=== PATIENT | female | born 1965 | race Caucasian/White ===

== ENCOUNTER 2018-09-18 16:07 | Inpatient (IN) | payer MEDICAID ==
[2018-09-19] MEDS ORDERED: BISACODYL 10 MG SUPP PR PRN (15:39)
--- NOTE | 2018-09-19 16:48 | PDOREHIP ---
Admission [facility] - Admission - 3 Day Assessment Period Admission Date/Day 1: 09/19/18 Day 2: 09/20/18 Day 3: 09/21/18 - Active Diagnoses Comorbidities and Co-existing Conditions at Admission: 79532. None of the Above - Skin Conditions Unhealed Pressure Ulcer (1 or more/Stage 1 or >)-Admission: 0. No # Stage 1 Pressure Ulcers-Admission: 0 # Stage 2 Pressure Ulcers-Admission: 0 # Stage 3 Pressure Ulcers-Admission: 0 # Stage 4 Pressure Ulcers-Admission: 0 # Unstageable Pressure Ulcers (Non-remove Dress)-Admission: 0 # Unstageable Pressure Ulcers (Slough/Eschar)-Admission: 0 # Unstageable Pressure Ulcers (Deep Tissue Injury)-Admission: 0
[2018-09-19] MEDS: ACETAMINOPHEN 500 MG TAB PO SCH ×2 (17:09→23:45)
[2018-09-19] MEDS: GABAPENTIN 300 MG CAP PO SCH ×2 (17:09→20:54)
[2018-09-19] MEDS: ENOXAPARIN 40 MG/0.4 ML SYR SC SCH (17:09)
[2018-09-19] MEDS: CYCLOBENZAPRINE 10 MG TAB PO PRN ×2 (18:26→23:45)
--- NOTE | 2018-09-19 18:42 | GHP ---
[f rep st] HISTORY AND PHYSICAL POST ADMISSION PHYSICIAN EVALUATION AND REHABILITATION TREATMENT PLAN. DATE OF ADMISSION: 09/19/2018 DATE OF EVALUATION: September 19, 2018. TIME OF EVALUATION: 1535. REFERRING FACILITY: [facility]. REFERRING PHYSICIAN: Dr. Escalante IMPAIRMENT GROUP: 8.9. DATE OF ONSET: 09/09/2018 CONSULTING PHYSICIANS: I do not have a full list, but she was also managed by the Pulmonary Critical Care Service. REHABILITATION DIAGNOSIS: Debility status post lumbar surgery. ETIOLOGIC DIAGNOSIS: Other orthopedic. DATE OF SURGERY: 09/09/2018. HISTORY OF PRESENT ILLNESS: This patient has had long-standing back pain and degenerative scoliosis. She had right leg weakness which had caused some falls. After failure of conservative treatment and considerable evaluation, she was finally admitted to [facility] for elective two-stage lumbar fusion surgery. She underwent an L2 to S1 oblique lateral interbody fusion on 09/09/2018, and an L2 to S2 posterior spinal fusion on 09/16/2018. Her hospital course was complicated by hypotension requiring pressors, supraventricular tachycardia, pain, anemia requiring blood transfusion, hematuria, and edema attributed to anasarca which was treated with furosemide. She continues to have weakness, more so in the right lower extremity than the left, but she was otherwise medically stabilized and ready for inpatient rehabilitation. STUDIES AND LABS IN THE HOSPITAL: Most recent basic metabolic profile was 09/17. She had a low calcium at7.8 and an elevated glucose at 174, but this was in the afternoon. Otherwise, renal function and electrolytes were overall within normal limits. CBC on 09/17/2018, showed anemia with a hemoglobin of 8.5 and hematocrit of 24.9. This was essentially unchanged from CBC done on , and the day, before she had considerably worse anemia with a hemoglobin of 6.4; presumably, she received a transfusion. Liver function tests on 09/16/2018, showed a low albumin at 2, AST was slightly elevated at 44. Otherwise, liver functions were normal. She had a fasting cortisol done on 09/10, normal at 21.5. On 09/16/2018, a serum test was negative. On 09/16, her pro time was elevated at 13.3, and her INR was 0.3. TSH was done on 09/11/2018,normal. Urinalysis on showed trace blood, was positive for nitrites, and was concentrated with a specific gravity greater than 1.030. Microscopic showed bacteria, 21-30 red blood cells, and 3 to 5 white blood cells. Echocardiogram showed a left ventricular ejection fraction of 65%. She had a relaxation abnormality with normal cardiac pressures. She had normal right ventricular size and function, and no valvular abnormalities. PRECAUTIONS: She is a fall risk, and she has orthopedic spine precautions. ACTIVE COMORBIDITIES: She has no active tier 1, tier 2, or tier 3 active comorbidities. PAST MEDICAL HISTORY: 1. Scoliosis. 2. Degenerative joint disease of the knees. 3. Neuromuscular disorder with abnormal MRI showing scattered subcortical lesions. Subsequent workup was negative for autoimmune vasculitis, neurosyphilis, or Lyme disease. 4. Chronic fatigue and pain. 5. De Quervain tenosynovitis on the right hand. 6. Depression. 7. Gastroesophageal reflux disease. 8. Migraines. 9. Helicobacter pylori gastritis. 10. Seasonal allergies. 11. Dyslipidemia. 12. Fibromyalgia. 13. Insomnia. 14. Pulmonary nodule which was stable on repeat CT in 2014. 15. Rheumatoid arthritis. PAST SURGICAL HISTORY: 1. She has had breast biopsy. 2. section x2. 3. Colonoscopy with biopsies. 4. Numerous paravertebral facet injections. PRE-HOSPITAL MEDICATIONS: 1. Amantadine 100 mg p.o. b.i.d. 2. Aspirin 81 mg p.o. daily. 3. Atorvastatin 40 mg p.o. q.h.s. 4. Calcium carbonate/vitamin-D 2 tablets p.o. daily. 5. Cetirizine 10 mg p.o. daily. 6. Coenzyme Q-10 100 mg p.o. daily. 7. Diclofenac gel. 8. Gabapentin 9. Hydroxychloroquine 200 mg p.o. b.i.d. 10. Ibuprofen 11. Magnesium malate 1,000 mg p.o. daily. 12. Metoprolol 50 mg b.i.d. 13. Mometasone 50 mcg actuation nasal spray 2 sprays into nostril daily. 14. Montelukast 10 mg p.o. daily. 15. Multivitamin p.o. daily. 16. Naratriptan 2.5 mg q.2 hours p.r.n. migraine, not to exceed 5 mg in 24 hours. 17. Olopatadine 0.7% 1 drop into each eye daily p.r.n. 18. Omeprazole 20 mg p.o. daily. 19. Topiramate 50 mg p.o. b.i.d. 20. Zolpidem 5 mg p.o. at bedtime. ADMISSION MEDICATIONS: 1. Acetaminophen 1,000 mg p.o. q.8 hours. 2. Amantadine 100 p.o. b.i.d. 3. Atorvastatin 40 mg p.o. at bedtime. 4. Bisacodyl 10 mg [place] daily p.r.n. 5. Cyclobenzaprine 10 mg p.o. q.6 hours p.r.n. 6. Enoxaparin 40 mg subcutaneous daily at 1600. 7. Fluticasone 2 sprays each nares daily. 8. Furosemide 20 mg p.o. Twice daily at 9:00 a.m. And 1500. 9. Gabapentin 900 mg p.o. t.i.d. 10. Hydroxychloroquine 200 200 mg p.o. twice daily. 11. Metoprolol 12.5 mg twice daily. 12. Montelukast 10 mg p.o. daily. 13. Multivitamin daily. 14. Oxycodone 5-15 mg p.o. q.4 hours p.r.n. 15. Pantoprazole 40 mg p.o. daily. 16. Polyethylene glycol 17 g p.o. daily. 17. Senna 1 p.o. b.i.d. 18. Topiramate 50 mg p.o. b.i.d. ALLERGIES: Listed to multiple antihistamines, codeine, hydromorphone, naproxen , penicillin, phenylpropanolamine, pseudoephedrine, and sulfa antibiotics. PSYCHOSOCIAL HISTORY: She is . She lives with her . She quit smoking about 9 years ago. She drinks occasional alcohol. She denies other substances of abuse. FAMILY HISTORY: Noncontributory. REVIEW OF SYSTEMS: She reports she gets occasional muscle spasms in her back and in her thighs, and she has pain, more bilateral in the lumbar area, and not central over her incision. She also has some tenderness in the left lower abdomen where she had the oblique procedure. Her right leg is still weaker than her left, and she says that at one time since her surgery, she was walking forward, but the right leg walked backwards. She has been sleeping well. She has a dry mouth. She has an occasional cough. There are no fevers or chills. There is no dyspnea. There is no chest pain or palpitations. Her bowels have moved, but she was constipated previously. She has a good appetite. There is no dysuria or urinary frequency. She had swelling of legs, and she thinks her weight has increased from her presurgical weight. Otherwise, a 10-point review of systems is negative. PHYSICAL EXAM: VITAL SIGNS: Blood pressure is 130/64, heart rate is 97, respiratory rate 18, temperature is 36.3 degrees centigrade. Her weight is 76.3 kg for a body mass of 26.8. GENERAL: This is an overweight-appearing woman sitting up in a chair, dressed in street clothes, cooperative, in no acute distress HEENT: Extraocular movements are intact. Pupils are equal, round, reactive to light. Mucous membranes are dry. She has a moderately crowded airway, Mallampati class 3. Dentition is in good condition. NECK: Supple. HEART: Regular rate and rhythm with no murmurs, rubs, or gallops. She has JVD and trace to 1+ edema at the left foot. LUNGS: Clear to auscultation bilaterally. ABDOMEN: Soft. It is distended. There is tenderness at the left lower quadrant over the incision. There are hypoactive bowel sounds. EXTREMITIES: There is no cyanosis or clubbing. There is edema at the left ankle, but not the right. There is no calf tenderness. NEUROLOGIC : She is alert and oriented x3. She is somewhat distractible and tangential. Cranial nerves 2-12 are grossly intact. Upper extremity motor strength is normal. Lower extremity motor strength is somewhat diminished on the right leg. Sensation overall is intact to light touch. Deep tendon reflexes are 2+ bilaterally at the patellar and Achilles tendons. SKIN: Incisions were examined. She has a drain in place in her upper lumbar region. The lumbar incision and abdominal left lower quadrant incision are glued. There is scant discharge from the drain site. CURRENT LEVEL OF FUNCTION: Per the pre-admission screen. She was on a regular diet, grooming required set up. Bathing required contact guard to minimal assist with voice cues for spinal precautions. For dressing, she required assistance for socks. Toileting was done with contact guard assist. Bed mobility required minimal assist and cues for log roll technique. Transfers required minimal assist. She used a front-wheeled walker. Balance required minimal assist. Endurance was fair. She was able to ambulate 30 feet x 3 with a front-wheeled walker and minimal assist. Communication and cognition were considered normal. On today's exam, there were no significant changes from the pre-admission screen. IMPRESSION: This is a 52-year-old woman who underwent a complex 2 stage lumbar surgery on 09/09/2018, with L2 to S1 oblique lumbar interbody fusion, and on , with L2 to S2 posterior spinal fusion for degenerative scoliosis. She had a complicated hospital course with hypotension requiring pressors, supraventricular tachycardia, anemia requiring transfusion, malnutrition, and anasarca, and she was treated with furosemide. She was eventually medically stabilized and appropriate for inpatient rehabilitation. Her goal is to complete a rehabilitation stay and then return home with her family and supportive services. For a safe discharge, she will need to be modified independent for activities of daily living and functional activities using a front-wheeled walker. She will need to maintain her spinal precautions throughout all activity. She will need to have affective pain managed and to be medically stable. She will have therapy with Physical Therapy and Occupational Therapy for 90 minutes per day for each discipline on 5-7 days a week. Her expected duration of stay is 5-7 days. It is anticipated that upon discharge she will continue to benefit from home health services including nursing, occupational therapy, physical therapy. PLAN: 1. Debility, status post lumbar to sacral fusion for degenerative scoliosis. PT and OT to optimize mobility and activities of daily living. 2. Symptom management. Pain currently is adequately controlled. Will continue oxycodone 5-15 mg q.4 hours p.r.n. unclear from her history whether she truly is suffering muscle spasms, but for now, we will continue cyclobenzaprine q.6 hours p.r.n., and it can be assessed whether this is true initial or simply contributing to dry mouth and confusion. Gabapentin has been increased from her 600 mg t.i.d. outpatient dose to 900 mg t.i.d. She will be monitored for continued neuropathic pain, and if possible, this medication can be tapered. 3. Constipation with distended abdomen, hypoactive bowel sounds. I have ordered a stat abdominal x-ray to determine her bowel status. We will continue laxatives as ordered for now with polyethylene glycol daily and senna 1 tab p.o. b.i.d. Additionally, bisacodyl suppository is ordered on an as-needed basis. Bowel program will be adjusted based on response. 4. Edema appears to be largely resolved, though she reports she is still up quite of bit of weight. Unclear how much the weight gain is related to the distended abdomen and constipation. Continue furosemide for now, but likely can be tapered. I have ordered a basic metabolic profile. 5. Anemia, status post transfusion. I have ordered a CBC. 6. History of MS-like neuromuscular disorder, presumably this is why she is on amantadine. This will be continued. 7. History of rheumatoid arthritis. She has no active synovitis present, and examination of her hands and feet does not reveal findings consistent with chronic joint destruction from rheumatoid arthritis. She reports she has not seen a fiberglass finisher in many years, but is managed by her primary care provider. We will continue hydroxychloroquine. 8. History of sinusitis and allergies. Continue cetirizine and montelukast. 9. History of gastroesophageal reflux disorder, continue pantoprazole. 10. History of migraines. Presumably, this is why topiramate is on board as a preventive. 11. History of hypertension with hypotension in the hospital. Continue metoprolol at 12.5 mg b.i.d. Blood pressure will be monitored and medication can be adjusted as needed. 12. Possible diastolic dysfunction based on echocardiogram that was done in the hospital. She will have daily weight and monitoring of her vitals. 13. Prophylaxis. She is certainly at moderate risk for DVT given her major surgery and prolonged hospital course. However, she has also ambulated as far as 300 feet. Will continue enoxaparin for now, but will have a low threshold to discontinue if her mobility improves. Will continue pantoprazole for gastroesophageal reflux disorder which will also serve as GI prophylaxis while she is on enoxaparin. FOLLOWUP: Her primary care provider is Dr. Jennifer Davis. She will follow up with Dr. Escalante of [facility] 2-3 weeks postoperatively, which is presumably in the week of September 29, and likely after her discharge from inpatient rehabilitation. /[id number]/MODL MTDD
[2018-09-19] MEDS ORDERED: METHYLNALTREXONE BROMIDE 12 MG/0.6 ML INJ SC ONE (19:00)
[2018-09-19] MEDS: oxyCODONE IR 5 MG TAB PO PRN ×2 (19:39→23:45)
[2018-09-19] MEDS: AMANTADINE HCL 100 MG CAP PO SCH (20:52)
[2018-09-19] MEDS: ATORVASTATIN CALCIUM 40 MG TAB PO SCH (20:54)
[2018-09-19] MEDS: SENNOSIDES 1 TAB PO SCH (20:54)
[2018-09-19] MEDS: METOPROLOL TARTRATE 25 MG TAB PO SCH (20:54)
[2018-09-19] MEDS: HYDROXYCHLOROQUINE SULFATE 200 MG TAB PO SCH (20:55)
[2018-09-19] MEDS: TOPIRAMATE 25 MG TAB PO SCH (20:56)
[2018-09-20] MEDS: CYCLOBENZAPRINE 10 MG TAB PO PRN ×3 (06:32→21:24)
[2018-09-20] MEDS: BIOTENE DRY MOUTH ORAL RINSE 237 ML BTL MM PRN (07:28)
[2018-09-20 09:27] LABS: PLATELET COUNT 342 10^3/uL (150-400)
[2018-09-20] MEDS: METOPROLOL TARTRATE 25 MG TAB PO SCH ×2 (10:28→21:24)
[2018-09-20] MEDS: GABAPENTIN 300 MG CAP PO SCH ×3 (10:28→21:23)
[2018-09-20] MEDS: MONTELUKAST SODIUM 10 MG TAB PO SCH (10:29)
[2018-09-20] MEDS: HYDROXYCHLOROQUINE SULFATE 200 MG TAB PO SCH ×2 (10:29→21:25)
[2018-09-20] MEDS: MULTIVITAMINS 1 EACH TAB PO SCH (10:29)
[2018-09-20] MEDS: FUROSEMIDE 20 MG TAB PO SCH ×2 (10:29→14:44)
[2018-09-20] MEDS: AMANTADINE HCL 100 MG CAP PO SCH ×2 (10:29→21:29)
[2018-09-20] MEDS: oxyCODONE IR 5 MG TAB PO PRN ×3 (10:30→21:23)
[2018-09-20] MEDS: TOPIRAMATE 25 MG TAB PO SCH ×2 (10:30→21:29)
[2018-09-20] MEDS: PANTOPRAZOLE SODIUM 40 MG TAB PO SCH (10:30)
[2018-09-20] MEDS: FLUTICASONE NASAL 120 SPRAYS/16 GM MDI EACHNARE SCH (10:39)
[2018-09-20] MEDS: ACETAMINOPHEN 500 MG TAB PO SCH ×2 (10:45→17:43)
[2018-09-20] MEDS: POLYETHYLENE GLYCOL 3350 17 GM PKT PO SCH (10:45)
--- NOTE | 2018-09-20 11:37 | HOSPPROG ---
Hospitalist Progress Note Assessment/Plan: * degenerative scoliosis s/p complex 2 part fusion L2-S2 - debility secondary from * cont PT/OT * Mild fluid overload * cont lasix for now. urinating a lot with the dose * Pain control * cont oxycodone/gabapentin * constipation * bowel protocol * anemia * expected * MS- like neuromuscular syndrome * on amatadine * GERD * PPI * migraines * topomax * HTN * metoprolol * ?Diastolic dysfx * cont to watch * DVT proph * lovenox Subjective: some pain after therapy but did not take pain med before. still feels swollen Objective: Vital Signs Temp Pulse Resp BP Pulse Ox 36.5 C 96 16 122/80 H 96 09/19/18 20:00 09/20/18 10:28 09/19/18 20:00 09/20/18 10:28 09/19/18 20:00 Laboratory Results 09/20/18 06:40 09/20/18 06:40 09/19/18 09/20/18 09/21/18 05:59 05:59 05:59 Intake Total 854 Output Total 100 Balance 754 - Physical Exam Constitutional: no apparent distress, appears nourished, not in pain Eyes: anicteric sclera, EOMI Ears, Nose, Mouth, Throat: moist mucous membranes Cardiovascular: regular rate and rhythym, no murmur, rub, or gallop, edema (1+) Respiratory: no respiratory distress, clear to auscultation Gastrointestinal: normoactive bowel sounds, soft, non-tender abdomen, no palpable masses, other (slight distension) Skin: warm Neurologic: AAOx3 Psychiatric: interacting appropriately, not anxious, not encephalopathic, thought process linear ICD10 Worksheet Patient Problems: Problems Problem Status Onset Debility Acute S/P lumbar fusion Acute
[2018-09-20] MEDS: SENNOSIDES 1 TAB PO SCH ×2 (13:34→21:24)
[2018-09-20] MEDS: ENOXAPARIN 40 MG/0.4 ML SYR SC SCH (14:43)
[2018-09-20] MEDS: ATORVASTATIN CALCIUM 40 MG TAB PO SCH (21:24)
[2018-09-21] MEDS: ACETAMINOPHEN 500 MG TAB PO SCH ×3 (05:22→15:24)
[2018-09-21] MEDS: oxyCODONE IR 5 MG TAB PO PRN ×3 (08:26→21:46)
[2018-09-21] MEDS: TOPIRAMATE 25 MG TAB PO SCH ×2 (08:28→21:46)
[2018-09-21] MEDS: PANTOPRAZOLE SODIUM 40 MG TAB PO SCH (08:28)
[2018-09-21] MEDS: GABAPENTIN 300 MG CAP PO SCH ×3 (08:28→21:45)
[2018-09-21] MEDS: POLYETHYLENE GLYCOL 3350 17 GM PKT PO SCH (08:29)
[2018-09-21] MEDS: FUROSEMIDE 20 MG TAB PO SCH ×2 (08:29→15:24)
[2018-09-21] MEDS: MONTELUKAST SODIUM 10 MG TAB PO SCH (08:29)
[2018-09-21] MEDS: SENNOSIDES 1 TAB PO SCH ×2 (08:29→21:45)
[2018-09-21] MEDS: METOPROLOL TARTRATE 25 MG TAB PO SCH ×2 (08:29→21:45)
[2018-09-21] MEDS: AMANTADINE HCL 100 MG CAP PO SCH ×2 (08:29→21:47)
[2018-09-21] MEDS: MULTIVITAMINS 1 EACH TAB PO SCH (08:29)
[2018-09-21] MEDS: HYDROXYCHLOROQUINE SULFATE 200 MG TAB PO SCH ×2 (08:29→21:46)
[2018-09-21] MEDS: BIOTENE DRY MOUTH ORAL RINSE 237 ML BTL MM PRN (08:30)
[2018-09-21] MEDS: FLUTICASONE NASAL 120 SPRAYS/16 GM MDI EACHNARE SCH (08:31)
--- NOTE | 2018-09-21 11:05 | HOSPPROG ---
Hospitalist Progress Note Assessment/Plan: * degenerative scoliosis s/p complex 2 part fusion L2-S2 - debility secondary from * cont PT/OT * Mild fluid overload * cont bid lasix for now. improving. may need another day or 2 * Pain control * cont oxycodone/gabapentin * constipation * bowel protocol * anemia * expected * MS- like neuromuscular syndrome * on amatadine * GERD * PPI * migraines * topomax * HTN * metoprolol * ?Diastolic dysfx * cont to watch * DVT proph * lovenox Subjective: pain better. swelling better Objective: Vital Signs Temp Pulse Resp BP Pulse Ox 36.7 C 80 16 131/67 H 97 09/21/18 06:56 09/21/18 06:56 09/21/18 06:56 09/21/18 06:56 09/21/18 06:56 Laboratory Results 09/20/18 06:40 09/20/18 06:40 09/20/18 09/21/18 09/22/18 05:59 05:59 05:59 Intake Total 854 840 Output Total 100 100 75 Balance 754 740 -75 - Physical Exam Constitutional: no apparent distress, appears nourished, not in pain Eyes: anicteric sclera, EOMI Ears, Nose, Mouth, Throat: moist mucous membranes Cardiovascular: regular rate and rhythym, edema (mild) Respiratory: no respiratory distress Skin: warm Neurologic: AAOx3 ICD10 Worksheet Patient Problems: Problems Problem Status Onset Debility Acute S/P lumbar fusion Acute
[2018-09-21] MEDS: ENOXAPARIN 40 MG/0.4 ML SYR SC SCH (15:24)
[2018-09-21] MEDS: ATORVASTATIN CALCIUM 40 MG TAB PO SCH (21:45)
[2018-09-21] MEDS: CYCLOBENZAPRINE 10 MG TAB PO PRN (21:46)
[2018-09-22] MEDS: ACETAMINOPHEN 500 MG TAB PO SCH ×3 (01:02→16:42)
[2018-09-22] MEDS: oxyCODONE IR 5 MG TAB PO PRN ×3 (07:49→22:48)
[2018-09-22] MEDS: FLUTICASONE NASAL 120 SPRAYS/16 GM MDI EACHNARE SCH (08:55)
[2018-09-22] MEDS: AMANTADINE HCL 100 MG CAP PO SCH ×2 (08:56→22:31)
[2018-09-22] MEDS: HYDROXYCHLOROQUINE SULFATE 200 MG TAB PO SCH ×2 (08:57→22:32)
[2018-09-22] MEDS: FUROSEMIDE 20 MG TAB PO SCH ×2 (08:57→16:43)
[2018-09-22] MEDS: METOPROLOL TARTRATE 25 MG TAB PO SCH ×2 (09:00→22:31)
[2018-09-22] MEDS: GABAPENTIN 300 MG CAP PO SCH ×3 (09:02→22:31)
[2018-09-22] MEDS: SENNOSIDES 1 TAB PO SCH ×2 (09:03→22:31)
[2018-09-22] MEDS: MULTIVITAMINS 1 EACH TAB PO SCH (09:03)
[2018-09-22] MEDS: MONTELUKAST SODIUM 10 MG TAB PO SCH (09:03)
[2018-09-22] MEDS: PANTOPRAZOLE SODIUM 40 MG TAB PO SCH (09:03)
[2018-09-22] MEDS: POLYETHYLENE GLYCOL 3350 17 GM PKT PO SCH (09:03)
[2018-09-22] MEDS: TOPIRAMATE 25 MG TAB PO SCH ×2 (09:04→22:32)
--- NOTE | 2018-09-22 11:28 | SOAPPROG ---
SOAP Progress Note Assessment/Plan: Assessment: 1. DEBILITY. STATUS POST LUMBAR TO SACRAL FUSION FOR DEGENERATIVE SCOLIOSIS. PT AND OT TO OPTIMIZE MOBILITY AND ACTIVITIES OF DAILY LIVING. 2. SYMPTOM MANAGEMENT. PAIN IS CURRENTLY WELL CONTROLLED. CONTINUE OXYCODONE 10 MG Q.4 HOURS P.R.N.. SHE REPORTS DECREASED PAIN WITH FLEXERIL 10 MG WHICH ALSO HELPS IMPROVE HER SLEEP AT NIGHT. SHE DENIES SIDE EFFECTS FROM FLEXERIL SUCH LETHARGY OR SLEEPINESS DURING THE DAY. CONTINUE GABAPENTIN FOR NEUROPATHIC PAIN. 3. CONSTIPATION WITH DISTENDED ABDOMEN. SHE REPORTS NO BOWEL MOVEMENT SINCE SATURDAY. NURSING CONTINUES TO WORK WITH PATIENT REGARDING BOWEL PROGRAM. PATIENT REPORTS HER BASELINE IS HAVING A BOWEL MOVEMENT EVERY 2-3 DAYS. CONTINUE POLY ETHYLENE GLYCOL DAILY AND SENNA 1 TABLET P. O. TWICE DAILY. PATIENT HAS BISACODYL SUPPOSITORY P.R.N.. 4. EDEMA-RESOLVED. P.R.N. LASIX IF IT OCCURS. 5. ANEMIA, STATUS POST TRANSFUSION. MONITOR CBCS. 6. HISTORY OF MS LIKE THE MUSCULAR DISORDER, ON AMANTADINE FOR THIS. 7. HISTORY OF RHEUMATOID ARTHRITIS. NO COMPLAINS OF ARTHRALGIA OR POLYARTHRALGIA. 8. ALLERGIC RHINITIS AND SINUSITIS. CONTINUE CETIRIZINE AND MONTELUKAST. 9.GERD. CONTINUE PANTOPRAZOLE. 10. HISTORY OF MIGRAINE HEADACHES. 11. HISTORY OF HYPERTENSION WITH HYPOTENSIVE MURPHY IN THE HOSPITAL. CONTINUE METOPROLOL 12.5 MG TWICE DAILY. MONITOR FOR SWINGS IN BLOOD PRESSURE. 12. POSSIBLE DIASTOLIC DYSFUNCTION. DAILY WEIGHTS. MONITOR FOR LOWER EXTREMITY EDEMA. 13. PROPHYLAXIS. WILL DISCONTINUE ENOXAPARIN WHEN PATIENT IS AMBULATING 150 FT DAILY. 14. WOUND CARE-WOUND IS HEALING NICELY. ISLAS DRAIN WITH 30 CC OF OUTPUT TODAY. FOLLOW-UP WITH HER PRIMARY CARE PHYSICIAN DR. CANDELARIO AND FOLLOW UP DR. REYES OF [facility] 2-3 WEEKS POSTOPERATIVELY. DISCHARGE DISPOSITION. PATIENT IS SET FOR DISCHARGE Saturday09/25/2018 Plan: 09/22/18 11:28 Subjective: NINE SHE REPORTS THAT SHE HAS NOT HAD A BOWEL MOVEMENT SINCE SATURDAY. SHE REPORTS THAT HER BASELINE IS HAVING A BOWEL MOVEMENT EVERY 2-3 DAYS. SHE REPORTS SOME ABDOMINAL DISTENSION BUT DENIES ABDOMINAL PAIN. SHE REQUESTED AND RECEIVED 10 MG OF OXYCODONE THIS MORNING. SHE ALSO RECEIVED MIRALAX THIS A.M. Objective: Vital Signs Temp Pulse Resp BP Pulse Ox 37.1 C 95 16 97/59 L 97 09/22/18 08:00 09/22/18 09:00 09/22/18 08:00 09/22/18 10:21 09/22/18 08:00 Laboratory Results 09/20/18 06:40 09/20/18 06:40 09/21/18 09/22/18 09/23/18 05:59 05:59 05:59 Intake Total 840 1080 Output Total 100 145 Balance 740 935 Physical Exam - Physical Exam General Appearance: WD/WN, alert, no apparent distress Respiratory: lungs clear, normal breath sounds Cardiac/Chest: No edema Abdomen: normal bowel sounds, non-tender, soft, distended Skin: warm/dry Extremities: No swelling, No Jose's sign Neuro/Psych: alert, normal mood/affect (GROSSLY NORMAL UPPER AND LOWER EXTREMITY MOTOR EXAM. AMBULATING WITH WALKER WITH DECREASED STEP AND STRIDE LENGTH BUT NO EVIDENCE OF KNEE INSTABILITY, NO EVIDENCE OF FOOTDROP.) ICD10 Worksheet Patient Problems: Problems Problem Status Onset Debility Acute S/P lumbar fusion Acute
[2018-09-22] MEDS: ENOXAPARIN 40 MG/0.4 ML SYR SC SCH (16:43)
[2018-09-22] MEDS: ATORVASTATIN CALCIUM 40 MG TAB PO SCH (22:31)
[2018-09-22] MEDS: CYCLOBENZAPRINE 10 MG TAB PO PRN (22:48)
[2018-09-23] MEDS: ACETAMINOPHEN 500 MG TAB PO SCH ×4 (02:00→21:46)
[2018-09-23] MEDS: oxyCODONE IR 5 MG TAB PO PRN ×2 (08:25→14:20)
[2018-09-23] MEDS: PANTOPRAZOLE SODIUM 40 MG TAB PO SCH (08:52)
[2018-09-23] MEDS: MONTELUKAST SODIUM 10 MG TAB PO SCH (08:52)
[2018-09-23] MEDS: FUROSEMIDE 20 MG TAB PO SCH ×2 (08:52→14:21)
[2018-09-23] MEDS: GABAPENTIN 300 MG CAP PO SCH ×3 (08:52→21:37)
[2018-09-23] MEDS: MULTIVITAMINS 1 EACH TAB PO SCH (08:53)
[2018-09-23] MEDS: AMANTADINE HCL 100 MG CAP PO SCH ×2 (08:53→21:39)
[2018-09-23] MEDS: METOPROLOL TARTRATE 25 MG TAB PO SCH ×2 (08:55→21:34)
[2018-09-23] MEDS: POLYETHYLENE GLYCOL 3350 17 GM PKT PO SCH (09:00)
[2018-09-23] MEDS: SENNOSIDES 1 TAB PO SCH ×2 (10:07→21:36)
--- NOTE | 2018-09-23 10:10 | SOAPPROG ---
[facility] Progress Note Assessment/Plan: Assessment: 1. DEBILITY. STATUS POST LUMBAR TO SACRAL FUSION FOR DEGENERATIVE SCOLIOSIS. PT AND OT TO OPTIMIZE MOBILITY AND ACTIVITIES OF DAILY LIVING. 2. SYMPTOM MANAGEMENT. PAIN IS CURRENTLY WELL CONTROLLED. CONTINUE OXYCODONE 10 MG Q.4 HOURS P.R.N.. SHE REPORTS DECREASED PAIN WITH FLEXERIL 10 MG WHICH ALSO HELPS IMPROVE HER SLEEP AT NIGHT. SHE DENIES SIDE EFFECTS FROM FLEXERIL SUCH LETHARGY OR SLEEPINESS DURING THE DAY. CONTINUE GABAPENTIN FOR NEUROPATHIC PAIN. She currently does not feel that she needs her gabapentin dose to be increased. She is having a little bit of increased parathoracic and paralumbar spasms today and she was counseled to apply an ice pack 20 min several times a day for this. 3. CONSTIPATION WITH DISTENDED ABDOMEN. SHE REPORTS NO BOWEL MOVEMENT SINCE SATURDAY. NURSING CONTINUES TO WORK WITH PATIENT REGARDING BOWEL PROGRAM. PATIENT REPORTS HER BASELINE IS HAVING A BOWEL MOVEMENT EVERY 2-3 DAYS. CONTINUE POLY ETHYLENE GLYCOL DAILY AND SENNA 1 TABLET P. O. TWICE DAILY. PATIENT HAS BISACODYL SUPPOSITORY P.R.N.. 4. EDEMA-RESOLVED. P.R.N. LASIX IF IT OCCURS. 5. ANEMIA, STATUS POST TRANSFUSION. MONITOR CBCS. 6. HISTORY OF MS LIKE THE MUSCULAR DISORDER, ON AMANTADINE FOR THIS. She also reports longstanding fibromyalgia and feels that this has been an somewhat aggravated by her recent spine surgery. 7. HISTORY OF RHEUMATOID ARTHRITIS. NO COMPLAINS OF ARTHRALGIA OR POLYARTHRALGIA. 8. ALLERGIC RHINITIS AND SINUSITIS. CONTINUE CETIRIZINE AND MONTELUKAST. 9.GERD. CONTINUE PANTOPRAZOLE. 10. HISTORY OF MIGRAINE HEADACHES. 11. HISTORY OF HYPERTENSION WITH hypotension IN THE HOSPITAL. CONTINUE METOPROLOL 12.5 MG TWICE DAILY. MONITOR FOR SWINGS IN BLOOD PRESSURE. 12. POSSIBLE DIASTOLIC DYSFUNCTION. DAILY WEIGHTS. MONITOR FOR LOWER EXTREMITY EDEMA. 13. PROPHYLAXIS. WILL DISCONTINUE ENOXAPARIN WHEN PATIENT IS AMBULATING 150 FT DAILY. 14. WOUND CARE-WOUND IS HEALING NICELY. ISLAS DRAIN WITH 30 CC OF OUTPUT TODAY. FOLLOW-UP WITH HER PRIMARY CARE PHYSICIAN DR. CANDELARIO AND FOLLOW UP DR. REYES OF [facility] 2-3 WEEKS POSTOPERATIVELY. DISCHARGE DISPOSITION. PATIENT IS SET FOR DISCHARGE Saturday09/25/2018 Plan: 09/22/18 11:28 09/23/18 10:07 Subjective: SHE FEELS A LITTLE FATIGUED THIS MORNING SECONDARY TO YESTERDAY'S THERAPY SESSIONS THIS MORNING. SHE IS ALSO HAVING A LITTLE BIT OF DIFFUSE MUSCLE PAIN WHICH SHE ATTRIBUTES TO HER FIBROMYALGIA. Objective: Vital Signs Temp Pulse Resp BP Pulse Ox 36.9 C 93 16 105/73 96 09/22/18 20:00 09/23/18 08:55 09/22/18 20:00 09/23/18 08:55 09/22/18 20:00 Laboratory Results 09/20/18 06:40 09/20/18 06:40 09/22/18 09/23/18 09/24/18 05:59 05:59 05:59 Intake Total 1080 2282 236 Output Total 145 30 Balance 935 2252 236 Physical Exam - Physical Exam General Appearance: WD/WN, alert, no apparent distress Respiratory: lungs clear, normal breath sounds Cardiac/Chest: No edema Skin: other (BACK INCISIONS ARE HEALING WELL. SHAHLA-ISLAS DRAIN IN PLACE WITH ABOUT 20 CC DRAINAGE.) Extremities: No swelling, No Jose's sign (SHE IS AMBULATING WITH THE FWW INDEPENDENTLY IN HER ROOM. INSPECTION OF GAIT WHILE WALKING IN HALLWAY DEMONSTRATES NO EVIDENCE OF KNEE INSTABILITY. NO FOOT DROP.) ICD10 Worksheet Patient Problems: Problems Problem Status Onset Debility Acute S/P lumbar fusion Acute
[2018-09-23] MEDS: FLUTICASONE NASAL 120 SPRAYS/16 GM MDI EACHNARE SCH (10:51)
[2018-09-23] MEDS: HYDROXYCHLOROQUINE SULFATE 200 MG TAB PO SCH ×2 (10:52→21:40)
[2018-09-23] MEDS: TOPIRAMATE 25 MG TAB PO SCH ×2 (10:52→21:40)
[2018-09-23] MEDS: CYCLOBENZAPRINE 10 MG TAB PO PRN ×2 (12:49→19:34)
[2018-09-23] MEDS: ENOXAPARIN 40 MG/0.4 ML SYR SC SCH (16:48)
[2018-09-23] MEDS: ATORVASTATIN CALCIUM 40 MG TAB PO SCH (21:36)
[2018-09-24] MEDS: ACETAMINOPHEN 500 MG TAB PO SCH ×2 (07:16→15:55)
[2018-09-24] MEDS: oxyCODONE IR 5 MG TAB PO PRN ×2 (08:14→17:35)
[2018-09-24] MEDS: POLYETHYLENE GLYCOL 3350 17 GM PKT PO SCH (09:00)
[2018-09-24] MEDS: FLUTICASONE NASAL 120 SPRAYS/16 GM MDI EACHNARE SCH (09:02)
[2018-09-24] MEDS: MONTELUKAST SODIUM 10 MG TAB PO SCH (09:03)
[2018-09-24] MEDS: FUROSEMIDE 20 MG TAB PO SCH ×2 (09:03→14:58)
[2018-09-24] MEDS: SENNOSIDES 1 TAB PO SCH ×2 (09:03→21:31)
[2018-09-24] MEDS: AMANTADINE HCL 100 MG CAP PO SCH ×2 (09:03→21:31)
[2018-09-24] MEDS: MULTIVITAMINS 1 EACH TAB PO SCH (09:04)
[2018-09-24] MEDS: PANTOPRAZOLE SODIUM 40 MG TAB PO SCH (09:04)
[2018-09-24] MEDS: GABAPENTIN 300 MG CAP PO SCH ×3 (09:04→21:32)
[2018-09-24] MEDS: HYDROXYCHLOROQUINE SULFATE 200 MG TAB PO SCH ×2 (09:05→21:31)
[2018-09-24] MEDS: TOPIRAMATE 25 MG TAB PO SCH ×2 (09:05→21:31)
[2018-09-24] MEDS: METOPROLOL TARTRATE 25 MG TAB PO SCH ×2 (09:06→21:25)
[2018-09-24] MEDS: CYCLOBENZAPRINE 10 MG TAB PO PRN (15:01)
--- NOTE | 2018-09-24 15:56 | SOAPPROG ---
SOAP Progress Note Assessment/Plan: Assessment: Debility, status post lumbar to sacral fusion for degenerative scoliosis. PT and OT to optimize mobility and activities of daily living. * Initial functional independence measure was 99 on 09/22/2018. She was ambulating with standby assist with a front wheeled walker. She climbed 9 stairs with bilateral hand rails. Upper and lower body dressing required setup and supervision. She was advanced to independent in her room. Symptom management. Continue oxycodone 5-15 mg q.4 hours p.r.n. and cyclobenzaprine q.6 hours p.r.n. Gabapentin has been increased from her 600 mg t.i.d. outpatient dose to 900 mg t.i.d. She will be monitored for continued neuropathic pain, and if possible, this medication can be tapered. Constipation with distended abdomen, hypoactive bowel sounds. Focal ileus noted on abdominal x-ray 09/19/2018. * Eventually responded to laxatives. Continue polyethylene glycol and senna. Edema appears to be largely resolved, though she reports she is still up quite of bit of weight. * Has had considerable weight loss consistent with diuresis, 4 kg. Anemia, status post transfusion. Stable on CBC 09/20/2018. History of MS-like neuromuscular disorder, presumably this is why she is on amantadine. This will be continued. History of rheumatoid arthritis. She has no active synovitis present, and examination of her hands and feet does not reveal findings consistent with chronic joint destruction from rheumatoid arthritis. She reports she has not seen a motor driver in many years, but is managed by her primary care provider. We will continue hydroxychloroquine. History of sinusitis and allergies. Continue cetirizine and montelukast. History of gastroesophageal reflux disorder, continue pantoprazole. History of hypertension with hypotension in the hospital. Continue metoprolol at 12.5 mg b.i.d. Blood pressure will be monitored and medication can be adjusted as needed. Possible diastolic dysfunction based on echocardiogram that was done in the hospital. She will have daily weight and monitoring of her vitals. Prophylaxis. Mobility is much improved and she is independent in her room. Discontinue enoxaparin starting 09/25/2018.. Will continue pantoprazole for gastroesophageal reflux disorder which will also serve as GI prophylaxis while she is on enoxaparin. DISPOSITION: Discharge home with family support, 09/25/2018. FOLLOWUP: Her primary care provider is Dr. Jennifer Davis. She will follow up with Dr. Escalante of [facility] on 09/26/2018. Whether drain should be continued will be assessed at follow-up visit. 09/24/18 16:02 Objective: Vital Signs Temp Pulse Resp BP Pulse Ox 36.6 C 86 16 119/70 94 09/24/18 05:45 09/24/18 05:45 09/24/18 05:45 09/24/18 05:45 09/24/18 05:45 Laboratory Results 09/20/18 06:40 09/20/18 06:40 09/23/18 09/24/18 09/25/18 05:59 05:59 05:59 Intake Total 2282 1212 1155 Output Total 30 140 Balance 2252 1072 1155 Physical Exam - Physical Exam General Appearance: WD/WN, alert, no apparent distress Respiratory: No respiratory distress, No accessory muscle use Skin: normal color, warm/dry Neuro/Psych: alert, normal mood/affect, oriented x 3, other (Ambulating in parker with front wheeled walker, normal gait.) ICD10 Worksheet Patient Problems: Problems Problem Status Onset Debility Acute S/P lumbar fusion Acute
[2018-09-24] MEDS: ATORVASTATIN CALCIUM 40 MG TAB PO SCH (21:32)
[2018-09-25] MEDS: CYCLOBENZAPRINE 10 MG TAB PO PRN (08:35)
[2018-09-25] MEDS: ACETAMINOPHEN 500 MG TAB PO SCH ×2 (08:54)
[2018-09-25] MEDS: POLYETHYLENE GLYCOL 3350 17 GM PKT PO SCH (08:54)
[2018-09-25] MEDS: FLUTICASONE NASAL 120 SPRAYS/16 GM MDI EACHNARE SCH (08:55)
[2018-09-25 08:57] VITALS: BP 94/62
[2018-09-25] MEDS: FUROSEMIDE 20 MG TAB PO SCH (08:58)
[2018-09-25] MEDS: AMANTADINE HCL 100 MG CAP PO SCH (08:58)
[2018-09-25] MEDS: GABAPENTIN 300 MG CAP PO SCH (08:59)
[2018-09-25] MEDS: METOPROLOL TARTRATE 25 MG TAB PO SCH (09:00)
[2018-09-25] MEDS: HYDROXYCHLOROQUINE SULFATE 200 MG TAB PO SCH (09:00)
[2018-09-25] MEDS: SENNOSIDES 1 TAB PO SCH (09:01)
[2018-09-25] MEDS: PANTOPRAZOLE SODIUM 40 MG TAB PO SCH (09:01)
[2018-09-25] MEDS: TOPIRAMATE 25 MG TAB PO SCH (09:01)
[2018-09-25] MEDS: MULTIVITAMINS 1 EACH TAB PO SCH (09:01)
[2018-09-25] MEDS: MONTELUKAST SODIUM 10 MG TAB PO SCH (09:01)
[2018-09-25] MEDS: oxyCODONE IR 5 MG TAB PO PRN (13:06)
--- NOTE | 2018-09-25 16:03 | PDOREHIP ---
Admission [facility] - Admission - 3 Day Assessment Period Admission Date/Day 1: 09/19/18 Day 2: 09/20/18 Day 3: 09/21/18 - Active Diagnoses Comorbidities and Co-existing Conditions at Admission: 07945. None of the Above Discharge [facility] - Discharge - 3 Day Assessment Period 2 Days Prior to Anticipated Discharge Date: 09/23/18 1 Day Prior to Anticipated Discharge Date: 09/24/18 Anticipated Discharge Date: 09/25/18 - Discharge Skin Conditions Unhealed Pressure Ulcer (1 or more/Stage 1 or >)-Discharge: 0. No # Stage 1 Pressure Ulcers-Discharge: 0 # Stage 2 Pressure Ulcers-Discharge: 0 # of These Stage 2 Pressure Ulcers Present on Admission: 0 # Stage 3 Pressure Ulcers-Discharge: 0 # of These Stage 3 Pressure Ulcers Present on Admission: 0 # Stage 4 Pressure Ulcers-Discharge: 0 # of These Stage 4 Pressure Ulcers Present on Admission: 0 # Unstageable Pressure Ulcers (Non-remove Dress)-Discharge: 0 # These Unstageable Pressure Ulcers (NRD)-Present on Admit: 0 # Unstageable Pressure Ulcers (Slough/Eschar)-Discharge: 0 # These Unstageable Pressure Ulcers(Slough) Present on Admit: 0 # Unstageable Pressure Ulcers (Deep Tissue Injury)-Discharge: 0 # These Unstageable Pressure Ulcers (DTI) Present on Admit: 0
--- NOTE | 2018-09-25 19:45 | GDS ---
[f rep st] DISCHARGE SUMMARY ADMITTING DIAGNOSIS: Debility, status post lumbar to sacral surgery for degenerative scoliosis. DISCHARGE DIAGNOSIS: Debility, status post lumbar to sacral surgery for degenerative scoliosis. OTHER DISCHARGE DIAGNOSES: 1. Pain management. 2. Constipation. 3. Edema. 4. Anemia, postsurgical. CONSULTATIONS: There were none. COMPLICATIONS: There were none. PROCEDURES: There were none. HISTORY AND HOSPITAL COURSE: This patient was admitted from [facility] where she had had surgery on 09/09/[address] Escalante of [facility] to correct degenerative scoliosis. Prior to the procedure, she had pain, as well as right leg weakness. She underwent an L2 to S1 oblique lateral interbody fusion on 09/09/2018 and an L2 to S2 posterior spinal fusion on 2018. Hospital course was complicated by hypotension requiring pressors, supraventricular tachycardia, pain, anemia requiring blood transfusion, hematuria, and edema attributed to anasarca and treated with furosemide. She was medically stabilized and appropriate for inpatient rehabilitation. She did well in inpatient rehabilitation. Her initial functional independence measure was 99 on 09/22/2018, which was consistent with assisted living function and at the threshold of independent function. She was ambulating with standby assist and a front-wheeled walker. She climbed 9 stairs with bilateral handrails. She required setup and supervision for upper body and lower body dressing. She was subsequently advanced to independent during the day and then independent on the unit 24 hours a day. She continued to use a front-wheeled walker for ambulation. She had considerable pain. She was using oxycodone, as well as cyclobenzaprine. She felt that there was muscle spasm bilaterally in her lumbar region that responded to cyclobenzaprine. She was using cyclobenzaprine once or twice per day. She continued to use oxycodone in 5 to 15 mg increments. Her total use declined in the last several days prior to discharge from 35 mg a day to 20 mg a day, and she used only a single dose of 5 mg on the day of discharge. She was continued on gabapentin, which had been increased in the hospital from her home dose of 600 mg three times daily to 900 mg three times daily. Regarding edema and fluid overload in the hospital, she had considerable diuresis with weight loss from 76.3 kg on the day of admission to 71.5 kg on the day of discharge. She was treated with furosemide 20 mg twice daily at 0900 hours and 1500 hours, and this was discontinued on the day of discharge. Regarding anemia and transfusion in the hospital, a CBC was drawn on 09/20/2018 , and her hemoglobin and hematocrit were stable at 8.1 and 24.5. She was continued on her outpatient medications for other comorbidities, which were a multiple sclerosis-like neuromuscular disorder, rheumatoid arthritis, sinusitis and seasonal allergies, gastroesophageal reflux disorder, and hypertension. DISCHARGE PLAN: Condition upon discharge is good. Diet is regular. Activity is ad maurisio, but she is cautioned against driving while using opiate pain medications. There were no new drug allergies. DISPOSITION: Home with family. CONTINUING THERAPIES: Per assessment of Neurosurgery after her followup. Therapies advised were physical therapy. MEDICATIONS UPON DISCHARGE: 1. Acetaminophen 1000 mg p.o. q.8 h. 2. Amantadine 100 mg p.o. twice daily. 3. Atorvastatin 40 mg p.o. at bedtime. 4. Cyclobenzaprine 10 mg p.o. q.6 h. p.r.n. 5. Fluticasone nasal spray, 2 sprays each naris daily. 6. Gabapentin 900 mg p.o. three times daily. 7. Hydroxychloroquine 200 mg p.o. twice daily. 8. Metoprolol 12.5 mg p.o. twice daily. 9. Montelukast 10 mg p.o. daily. 10. Multivitamin daily. 11. Oxycodone 5 to 15 mg p.o. q.4 h. p.r.n. 12. Pantoprazole 40 mg p.o. daily. 13. Polyethylene glycol 17 g p.o. daily. 14. Saliva substitute p.r.n. 15. Senna 1 p.o. twice daily. 16. Topiramate 50 mg p.o. twice daily. ISSUES TO BE ADDRESSED AT FOLLOWUP: 1. Mobility and functional status. She may continue physical therapy if it is advised by the surgeon. 2. Pain symptoms. Continue medications as needed and follow up with primary care provider. 3. Constipation, probably needing laxatives as long as she is taking opiates and will likely not need them when she no longer requires opiate pain medication. 4. Anemia. She should have a followup CBC to be assured that her blood counts are recovering. This can be done by her primary care provider. /[id number]/MODL MTDD
== END 2018-09-25 14:04 | disposition home or self-care (01) | DRG 860 ==
LOC: BREH 09-19 14:04
PROVIDERS: ADMIT Internal Medicine Hospice and Palliative Medicine; ATTEND Internal Medicine Hospice and Palliative Medicine
DX: Z47.82 Encounter for orthopedic aftercare following scoliosis surgery (principal); M47.26 Other spondylosis with radiculopathy, lumbar region; Z98.1 Arthrodesis status; D64.89 Other specified anemias; K59.00 Constipation, unspecified; G70.89 Other specified myoneural disorders; M17.0 Bilateral primary osteoarthritis of knee; R53.82 Chronic fatigue, unspecified; G47.00 Insomnia, unspecified; M06.9 Rheumatoid arthritis, unspecified; I10 Essential (primary) hypertension; F32.9 Major depressive disorder, single episode, unspecified; G43.909 Migraine, unspecified, not intractable, without status migrainosus; K21.9 Gastro-esophageal reflux disease without esophagitis; M65.4 Radial styloid tenosynovitis [de Quervain]; E78.5 Hyperlipidemia, unspecified; R91.1 Solitary pulmonary nodule; Z87.891 Personal history of nicotine dependence
CPT/HCPCS: 97110-GO; 97110-GP; 97116-GP; 97161-GP; 97166-GO; 97530-GO; 97530-GP; 97535-GO; J1650; J2212